=== PATIENT | female | born 1965 | race Caucasian/White ===

== ENCOUNTER 2017-05-15 01:06 | Emergency (ER) | payer OTHER ==
[~2017-05-15] VITALS: Ht 167.6 cm; Wt 72.6 kg
[2017-05-15 01:06] VITALS: BP_SYST 117
[2017-05-15] MEDS ORDERED: IPRATROPIUM/ALBUTEROL SULFATE 3 ML AMPUL.NEB INH ONE (01:45)
[2017-05-15 02:37] VITALS: BP_SYST 128
== END 2017-05-15 02:37 | disposition home or self-care (01) ==
LOC: SED 01:06
DX: J45.901 Unspecified asthma with (acute) exacerbation (principal); J09.X2 Influenza due to identified novel influenza A virus with other respiratory manifestations
CPT/HCPCS: 36415; 71045; 86710; 94640; 99285